=== PATIENT | female | born 1990 ===

== ENCOUNTER 2021-02-04 04:49 | Inpatient (IN) ==
[2021-02-04] MEDS ORDERED: BUTORPHANOL 2 MG/ML VIAL IV PRN (05:03)
[2021-02-04] MEDS ORDERED: MEPERIDINE 50 MG/1 ML VIAL IV PRN (05:03)
[2021-02-04] MEDS ORDERED: ONDANSETRON 4 MG/2 ML VIAL IV PRN ×2 (05:03→14:24)
[2021-02-04] MEDS: LACTATED RINGERS 1,000 ML IV SCH ×3 (05:28→13:14)
[2021-02-04] MEDS ORDERED: OXYTOCIN/LR 20 UNIT/1,000 ML BAG IV SCH (05:30)
[2021-02-04] MEDS ORDERED: CLINDAMYCIN INJ 900 MG in PREMIX 1 EACH IV SCH (05:30)
[2021-02-04 05:33] LABS: Basophils % 0.5 % (0.0-0.8); Eosinophils # 0.1 10*3/uL (0.0-0.87); Eosinophils % 1.1 % (0.00-10.9); Hematocrit 34.3 VOL% (35.7-47.0); Hemoglobin 11.9 GM/DL (12.0-16.0); Immature Granulocytes % 0.4 %; Immature Granulocytes Absolute 0.03 #; Lymphocytes # 2.6 10*3/uL (1.4-4.0); Lymphocytes % 32.8 % (21.3-54.2); Mean Corpuscular HGB Conc 34.7 GM/DL (32-36); Mean Corpuscular Volume 97.2 FL (87-102); Mean Platelet Volume 12.3 FL (9.6-12.0); Monocytes % 10.1 % (1.7-12.7); Neutrophils % 55.1 % (38.7-73.9); Platelet Count 151 T/CUMM (130-400); Red Blood Count 3.53 MC/CUMM (3.8-5.5); Red Cell Distribution Width 12.8 % (9.3-17.3); White Blood Count 7.9 T/CUMM (4-12)
[2021-02-04] MEDS ORDERED: hydrOXYzine HCL 25 MG/1 ML VIAL IM PRN (06:06)
[2021-02-04] MEDS ORDERED: PROMETHAZINE 25 MG/1 ML VIAL IM ONE (06:06)
[2021-02-04] MEDS ORDERED: diphenhydrAMINE 50 MG/1 ML VIAL IV PRN ×2 (06:06)
[2021-02-04] MEDS ORDERED: ePHEDrine 50 MG/ML VIAL IV PRN (06:06)
[2021-02-04] MEDS ORDERED: NALOXONE 0.4 MG/ML VIAL IV PRN (06:06)
[2021-02-04] MEDS ORDERED: CITRIC ACID/SODIUM CITRATE 30 ML UDCUP PO ONE (06:07)
[2021-02-04] MEDS ORDERED: FAMOTIDINE 20 MG/2 ML VIAL IV ONE (06:07)
[2021-02-04] MEDS ORDERED: fentaNYL 2 MCG/ROPIV 0.2% EPID 100 ML EPIDURAL SCH (06:30)
[2021-02-04] MEDS ORDERED: LACTATED RINGERS 1,000 ML IV SCH (06:30)
[2021-02-04 06:39] LABS: INR 0.9; Partial Thromboplastin Time 28.4 SECS (23.9-33.8)
[2021-02-04 08:43] LABS: Amorphous Crystals,Urine Few /HPF (Few); Bacteria,Urine Occasional /HPF (Few); Bilirubin,Urine Negative (Negative); Blood, Urine Negative (Negative); Glucose,Urine (UA) Negative (Negative); Ketones,Urine 20 mg/dL (Negative); Mucus,Urine Many /LPF (Occasional); Nitrite,Urine Negative (Negative); Protein,Urine 30 MG/DL; RBC,Urine 2 /HPF (0-4); Squamous Epithelial Cell,Urine Occasional /HPF (0-10); Urine Appearance CLEAR (Clear); Urine Color Amber (Yellow)
[2021-02-04] MEDS ORDERED: METHYLERGONOVINE 0.2 MG/1 ML AMP ONE (12:07)
[2021-02-04] MEDS ORDERED: CARBOPROST TROMETHAMINE 250 MCG/ML AMP IM ONE (12:07)
[2021-02-04] MEDS ORDERED: miSOPROStoL 200 MCG TABLET ONE (12:07)
[2021-02-04] MEDS ORDERED: LANOLIN 50% CREAM 0.3 OZ TUBE TOP PRN (14:24)
[2021-02-04] MEDS ORDERED: MEASLES/MUMPS/RUBELLA VACCINE 0.5 ML VIAL SUBCUT ONE (14:24)
[2021-02-04] MEDS ORDERED: OXYTOCIN/LR 20 UNIT/1,000 ML BAG IV ONE (14:24)
[2021-02-04] MEDS ORDERED: DIPH/TET/ACEL PERT BOOSTER VACCINE 0.5 ML VIAL IM ONE (14:24)
[2021-02-04] MEDS ORDERED: ACETAMINOPHEN 325 MG TABLET PO PRN (14:24)
[2021-02-04] MEDS ORDERED: BENZOCAINE 20%/MENTHOL 0.5% SPRAY 56 GM CAN TOP PRN (14:24)
[2021-02-04] MEDS ORDERED: WITCH HAZEL PADS 100/JAR TOP PRN (14:24)
[2021-02-04] MEDS ORDERED: BISACODYL 10 MG SUPP RECTAL PRN (14:24)
[2021-02-04] MEDS ORDERED: oxyCODONE/ACETAMINOPHEN 5-325 MG TABLET PO PRN ×2 (14:24)
[2021-02-04] MEDS ORDERED: RHO(D) IMMUNE GLOBULIN 300 MCG SYRINGE IM ONE (14:24)
[2021-02-04] MEDS ORDERED: HYDROCORTISONE 2.5% RECTAL CREAM 30 GM TUBE TOP PRN (14:24)
[2021-02-04] MEDS ORDERED: IBUPROFEN 800 MG TABLET PO PRN (14:24)
[2021-02-04 15:00] LABS: Cord Arterial Blood HCO3 20.8 MMOL/L; Cord Venous Blood HCO3 18.6 MMOL/L; Cord Venous Blood PCO2 38.2 MMHG; Cord Venous Blood PO2 146.5 MMHG
[2021-02-04] MEDS: DOCUSATE SODIUM 100 MG CAPSULE PO SCH ×2 (19:22→23:37)
[2021-02-05 05:22] LABS: Basophils % 0.2 % (0.0-0.8); Eosinophils # 0.1 10*3/uL (0.0-0.87); Eosinophils % 0.7 % (0.00-10.9); Hematocrit 29.8 VOL% (35.7-47.0); Hemoglobin 10.2 GM/DL (12.0-16.0); Immature Granulocytes % 0.4 %; Immature Granulocytes Absolute 0.05 #; Lymphocytes # 2.8 10*3/uL (1.4-4.0); Lymphocytes % 20.4 % (21.3-54.2); Mean Corpuscular HGB Conc 34.2 GM/DL (32-36); Mean Corpuscular Volume 99.7 FL (87-102); Mean Platelet Volume 12.9 FL (9.6-12.0); Monocytes % 7.4 % (1.7-12.7); Neutrophils % 70.9 % (38.7-73.9); Platelet Count 126 T/CUMM (130-400); Red Blood Count 2.99 MC/CUMM (3.8-5.5); Red Cell Distribution Width 12.9 % (9.3-17.3); White Blood Count 13.6 T/CUMM (4-12)
[2021-02-05 07:03] LABS: Cannabinoid Screen,Urine Negative (Negative)
[2021-02-05] MEDS: DOCUSATE SODIUM 100 MG CAPSULE PO SCH ×2 (08:59→21:21)
[2021-02-06 07:17] VITALS: BP 142/82
[2021-02-06] MEDS: DOCUSATE SODIUM 100 MG CAPSULE PO SCH (10:13)
== END 2021-02-06 12:20 | disposition home or self-care (01) | DRG 807 ==
LOC: N.LDOUT 04:49 → N.LD 04:51 → N.OB 16:45
PROVIDERS: ADMIT Obstetrics & Gynecology; ATTEND Obstetrics & Gynecology